=== PATIENT | male | born 1980 | race Caucasian/White ===

== ENCOUNTER 2020-05-10 03:04 | Emergency (ER) | payer SELFPAY ==
[~2020-05-10] VITALS: Ht 152.4 cm; Wt 76.2 kg
[2020-05-10 03:07] VITALS: BP 113/73
--- NOTE | 2020-05-10 03:14 | NUR ---
PT AMBUALTED TO BED 12 WITH STEADY GAIT.
--- NOTE | 2020-05-10 03:15 | NUR ---
PT 39 Y/O MALE BIB SELF FOR C/O L HAND PAIN RADIATING TO L FA. PT STATES PAIN BEGAN X 40 MIN AGO AND IS 6/10 PAIN. PAIN IS DESCRIBED THROBBING, COMES AND GOES. PT DENIES TAKING PAIN MEDICATIONS PRIOR TO ARRIVAL. PT STATES HAS NUMBNESS IN L 1 AND 2ND DIGIT. PT STATES "I WORK WITH MY HANDS A LOT." PT RADIAL PULSES EQUAL AND STRONG BILAT. PT CAP REFIL <3. PT BED LOCKED AND IN LOWEST POSITION. MEDHX: MIGRAINES ALLERGIES: NKA
--- NOTE | 2020-05-10 03:19 | NUR ---
ERMD AT BEDSIDE.
[2020-05-10] MEDS ORDERED: KETOROLAC 60 MG/2 ML VIAL IM ONE (03:20)
--- NOTE | 2020-05-10 03:36 | NUR ---
Opal alvarado in [facility] - 05/10/20 at 0346 by OLEGARIO X-Ray at bedside.
--- NOTE | 2020-05-10 03:46 | NUR ---
X-Ray at bedside.
--- NOTE | 2020-05-10 04:05 | NUR ---
PT STATES PAIN IN L HAND/FA REDUCED FROM 6/10 TO 2/10.
[2020-05-10 04:10] VITALS: BP 113/73
== END 2020-05-10 04:10 | disposition home or self-care (01) ==
LOC: MED 03:04
DX: G56.32 Lesion of radial nerve, left upper limb (principal); G43.911 Migraine, unspecified, intractable, with status migrainosus; Z98.890 Other specified postprocedural states
CPT/HCPCS: 73130; 96372; 99283; J1885; Q0092

== ENCOUNTER 2022-03-22 03:30 | Emergency (ER) | payer SELFPAY ==
[~2022-03-22] VITALS: Ht 152.4 cm; Wt 71.7 kg
[2022-03-22 03:36] VITALS: BP 138/87
--- NOTE | 2022-03-22 03:36 | NUR ---
TO BED AMBULATORY
[2022-03-22] MEDS: KETOROLAC 60 MG/2 ML VIAL IM ONE ×2 (04:50→05:02)
[2022-03-22] MEDS ORDERED: NAPR-54 PO (05:32)
--- NOTE | 2022-03-22 05:50 | NUR ---
Patient discharged with v/s stable. Written and verbal after care instructions given and explained BY DR. CABALLERO. Patient alert, oriented and verbalized understanding of instructions. Ambulatory with steady gait. All questions addressed prior to discharge. ID band removed. Patient advised to follow up with PMD. Rx of NAPROSYN given. Patient educated on indication of medication including possible reaction and side effects. Opportunity to ask questions provided and answered.
== END 2022-03-22 05:50 | disposition home or self-care (01) ==
LOC: MED 03:30
DX: G56.01 Carpal tunnel syndrome, right upper limb (principal); Z79.899 Other long term (current) drug therapy
CPT/HCPCS: 96372; 99283; J1885